=== PATIENT | female | born 1960 | race Caucasian/White ===

== ENCOUNTER → 2017-05-14 | Outpatient (CLI) | payer OTHER ==
[~2017-05-14] MED LIST: Duragesic TD; Ecotrin PO; Feosol PO; Nucynta PO; celeBREX PO
== END | disposition home or self-care (01) ==
LOC: NUC 07:35
DX: R10.11 Right upper quadrant pain (principal)
CPT/HCPCS: 78226; A9537

== ENCOUNTER 2017-08-05 18:52 | Observation (INO) | payer OTHER ==
[~2017-08-05] VITALS: Ht 167.6 cm; Wt 107.8 kg
[~2017-08-05 18:52] MED LIST changes: +NUCYNTA50 MG PO; -Nucynta PO
[2017-08-05] MEDS ORDERED: VENTOLIN HFA18 GM IH (21:44)
[2017-08-05] MEDS ORDERED: MELOXICAM7.5 MG PO (21:44)
[2017-08-05] MEDS ORDERED: ASMANEX HFA13 G1 IH (21:45)
[2017-08-05 23:14] LABS: HEMATOCRIT 41.6 % (36.0-46.0); MCH 27.8 PG (29.0-34.0); MCHC 33.7 G/DL (30.0-36.0); MCV 82.7 FL (83-99); PLATELET COUNT 241 K/uL (156-360); RBC DIS.WIDTH-CV 14.2 % (11.8-14.6); RBC DIS.WIDTH-SD 42.8 % (39-53); RED BLOOD COUNT 5.03 M/uL (3.80-5.20); WHITE BLOOD COUNT 7.7 K/uL (4.1-10.2)
[2017-08-05 23:24] LABS: CHLORIDE 108 mEq/L (99-109); POTASSIUM 3.4 mEq/L (3.7-5.4); SODIUM 138 mEq/L (136-147)
[2017-08-05 23:26] LABS: GLUCOSE 166 mg/dL (70-99)
[2017-08-05 23:30] LABS: CREATININE 0.9 mg/dL (0.6-1.3); GFR ESTIMATE (CALCULATED) > 59 mL/min/
[2017-08-05 23:31] LABS: UREA NITROGEN (BUN) 11 mg/dL (9-23)
[2017-08-05 23:53] VITALS: BP 104/80
[2017-08-06 05:40] LABS: HEMATOCRIT 40.2 % (36.0-46.0); HEMOGLOBIN 13.2 G/DL (11.9-15.5); MCH 27.4 PG (29.0-34.0); MCHC 32.8 G/DL (30.0-36.0); MCV 83.6 FL (83-99); PLATELET COUNT 212 K/uL (156-360); RBC DIS.WIDTH-CV 14.3 % (11.8-14.6); RBC DIS.WIDTH-SD 43.6 % (39-53); RED BLOOD COUNT 4.81 M/uL (3.80-5.20); WHITE BLOOD COUNT 9.1 K/uL (4.1-10.2)
[2017-08-06 06:11] LABS: CHLORIDE 106 MEQ/L (99-109); CREATININE 0.8 MG/DL (0.6-1.3); GFR ESTIMATE (CALCULATED) > 59 mL/min/; POTASSIUM 3.5 MEQ/L (3.7-5.4); SODIUM 140 MEQ/L (136-147); UREA NITROGEN (BUN) 11 mg/dL (9-23)
[2017-08-06 06:12] LABS: GLUCOSE 93 mg/dL (70-99)
[2017-08-06] MEDS ORDERED: ADVAIR 100/501 DISK IH (10:36)
[2017-08-06] MEDS ORDERED: PREDNISONE10 MG PO (10:36)
== END 2017-08-06 11:53 | disposition home or self-care (01) ==
LOC: EME 18:52 → EDOF 22:29 → ENRESERV 22:35 → 5WEST 23:34 → ENPENDDIS 08-06 → 5WEST 08-06 11:53
PROVIDERS: Emergency Medicine; Hospitalist
DX: J45.41 Moderate persistent asthma with (acute) exacerbation (principal); E87.6 Hypokalemia; R00.0 Tachycardia, unspecified; G89.29 Other chronic pain; M19.90 Unspecified osteoarthritis, unspecified site; E66.9 Obesity, unspecified; Z68.38 Body mass index [BMI] 38.0-38.9, adult; Z91.040 Latex allergy status; Z88.8 Allergy status to other drugs, medicaments and biological substances; Z90.710 Acquired absence of both cervix and uterus
CPT/HCPCS: 80048; 85027; 94640; 94640 76; 99202; 99281; 99285; G0378; J2920; J3475